=== PATIENT | female | born 1995 | race Caucasian/White ===

== ENCOUNTER 2016-05-20 19:02 | Emergency (ER) | payer OTHER, MEDICAID ==
[~2016-05-20] VITALS: Ht 157.5 cm; Wt 69.4 kg
[2016-05-20 19:56] LABS: Basophils # (auto) 0.1 uL; Basophils % (auto) 0.7 % (0.0-2.0); DEFINITIVE VIEW TRANSMISSION; Eosinophils # (auto) 0.1 uL; Eosinophils % (auto) 0.9 % (0.0-7.0); Hematocrit 44.2 % (36.0-46.0); Hemoglobin 14.3 g/dL (12.2-16.2); Lymphocytes # (auto) 3.5 uL; Lymphocytes % (auto) 42.5 % (10.0-50.0); Mean Corpuscular Hemoglobin 26.6 pg (28.0-32.0); Mean Corpuscular Hgb Conc. 32.3 g/dL (32.0-36.0); Mean Corpuscular Volume 82.4 fL (80.0-100.0); Monocytes # (auto) 0.6 uL; Monocytes % (auto) 6.9 % (0.0-12.0); Platelet Count (auto) 260 10^3/uL (140-450); White Blood Cell 8.3 10^3/uL (4.4-10.8)
[2016-05-20 19:59] LABS: Urine Bilirubin Negative (Negative); Urine Blood Negative /uL (Negative); Urine Color Yellow (Yellow); Urine Glucose Normal (Normal); Urine Ketone Negative (Negative); Urine Nitrite Negative (Negative); Urine RBC 1 /hpf (0 - 4); Urine Squamous Epithelial Cell FEW /hpf (<5); Urine Urobilinogen Normal (Negative)
[2016-05-20 20:22] LABS: Bilirubin, Total 0.2 mg/dL (0.2-1.0); Calcium 9.2 mg/dL (8.5-10.1); Total Protein 7.5 g/dL (6.4-8.2)
[2016-05-21 04:39] VITALS: BP 120/71
== END 2016-05-21 05:03 | disposition left against medical advice (07) ==
LOC: ER 19:12 → EDUNIT# 19:12 → ER 05-21 05:03
DX: R10.30 Lower abdominal pain, unspecified (principal); Z53.21 Procedure and treatment not carried out due to patient leaving prior to being seen by health care provider
CPT/HCPCS: 36415; 74176; 80053; 81001; 81025; 84702; 85025

== ENCOUNTER 2017-06-10 20:07 | Emergency (ER) | payer OTHER, MEDICAID ==
[~2017-06-10] VITALS: Ht 160 cm; Wt 89.4 kg
[2017-06-10] MEDS ORDERED: cefTRIAXone 1GM/10ml IVPUSH 10 ML IV ONE ×2 (20:44→20:45)
[2017-06-10 21:10] LABS: Eosinophils # (auto) 0 uL; Mean Corpuscular Volume 80.7 fL (80.0-100.0); Monocytes # (auto) 1.3 uL
[2017-06-10 21:15] LABS: Basophils # (auto) 0.2 uL; Basophils % (auto) 0.8 % (0.0-2.0); Hematocrit 39.7 % (36.0-46.0); Hemoglobin 12.9 g/dL (12.2-16.2); Lymphocytes # (auto) 1.8 uL; Lymphocytes % (auto) 7.1 % (10.0-50.0); Mean Corpuscular Hemoglobin 26.3 pg (28.0-32.0); Mean Corpuscular Hgb Conc. 32.5 g/dL (32.0-36.0); Neutrophils # (auto) 22.1 uL; Neutrophils % (auto) 87.1 % (37.0-80.0); Platelet Count (auto) 241 10^3/uL (140-450); Red Blood Cells 4.92 10^6/uL (4.0-5.20); Red Cell Distribution Width 14.9 % (11.8-14.3); White Blood Cell 25.4 10^3/uL (4.4-10.8)
[2017-06-10 21:25] LABS: Urine Bacteria FEW /hpf (None Seen); Urine Blood 1+ /uL (Negative); Urine Mucus FEW (None Seen); Urine Specific Gravity 1.027 (1.001-1.035); Urine WBC 3 /hpf (0 - 5)
[2017-06-10] MEDS ORDERED: SODIUM CHLORIDE 0.9% 1,000 ML IV ONE (22:45)
[2017-06-10 23:40] LABS: Albumin 3.3 g/dL (3.4-5.0); BUN/Creatinine Ratio 17.3; Bilirubin, Total 0.7 mg/dL (0.2-1.0); Calcium 8.4 mg/dL (8.5-10.1); Potassium 3.6 mmol/L (3.5-5.1); Total Protein 7.1 g/dL (6.4-8.2)
[2017-06-11 00:33] VITALS: BP 91/64
[2017-06-11] MEDS ORDERED: CLINDAMYCIN HCL 150 MG CAP PO ONE (01:00)
[2017-06-11] MEDS ORDERED: HYDROcodone-ACET 5/325MG TAB PO ONE (01:00)
== END 2017-06-11 02:21 | disposition home or self-care (01) ==
LOC: ER 20:07 → EDBD 20:07 → ER 06-11 02:12
DX: K05.219 Aggressive periodontitis, localized, unspecified severity (principal); R42 Dizziness and giddiness
CPT/HCPCS: 36415; 70450; 80053; 81001; 85025; 87040; 96361; 96374

== ENCOUNTER 2017-06-12 13:10 | Emergency (ER) | payer OTHER, MEDICAID | END 2017-06-12 13:50 | disposition left against medical advice (07) | LOC: ER 13:10 | DX: R21 Rash and other nonspecific skin eruption (principal); Z53.21 Procedure and treatment not carried out due to patient leaving prior to being seen by health care provider ==

== ENCOUNTER 2018-02-21 16:58 | Emergency (ER) | payer MEDICAID, OTHER ==
[~2018-02-21] VITALS: Ht 160 cm; Wt 93.9 kg
[2018-02-21 21:00] VITALS: BP 133/79
== END 2018-02-21 21:11 | disposition home or self-care (01) ==
LOC: ER 17:13
DX: S40.011A Contusion of right shoulder, initial encounter (principal); W22.8XXA Striking against or struck by other objects, initial encounter; Y93.89 Activity, other specified; Y92.89 Other specified places as the place of occurrence of the external cause; Y99.8 Other external cause status
CPT/HCPCS: 73030

== ENCOUNTER 2020-05-18 11:47 | Inpatient (IN) | payer OTHER ==
[~2020-05-18] VITALS: Ht 167.6 cm; Wt 106.5 kg
[2020-05-18 14:09] LABS: Basophils # (auto) 0.1 10 ^3/uL (0-0.2); Eosinophils # (auto) 0 10 ^3/uL (0-0.8); Eosinophils % (auto) 0.2 % (0.0-7.0); Monocytes # (auto) 1.3 10 ^3/uL (0-1.3)
[2020-05-18 14:11] LABS: Basophils % (auto) 0.7 % (0.0-2.0); Hematocrit 44.7 % (36.0-46.0); Hemoglobin 14.7 g/dL (12.2-16.2); Lymphocytes # (auto) 2.1 10 ^3/uL (0.4-5.4); Lymphocytes % (auto) 13.8 % (10.0-50.0); Mean Corpuscular Hemoglobin 25.7 pg (28.0-32.0); Mean Corpuscular Hgb Conc. 32.9 g/dL (32.0-36.0); Mean Corpuscular Volume 78.2 fL (80.0-100.0); Monocytes % (auto) 8.3 % (0.0-12.0); Neutrophils # (auto) 11.7 10 ^3/uL (1.6-8.6); Nucleated Red Blood Cells % 0.1 %; Platelet Count (auto) 375 10^3/uL (140-450); Red Blood Cells 5.72 10^6/uL (4.0-5.20); Red Cell Distribution Width 15.2 % (11.8-14.3); White Blood Cell 15.2 10^3/uL (4.4-10.8)
[2020-05-18 14:17] LABS: Albumin 3.6 g/dL (3.4-5.0); BUN/Creatinine Ratio 19.5; Calcium 8.7 mg/dL (8.5-10.1); Potassium 3.9 mmol/L (3.5-5.1)
[2020-05-18 14:20] LABS: Bilirubin, Total 0.2 mg/dL (0.2-1.0); Total Protein 7.8 g/dL (6.4-8.2)
[2020-05-18 14:29] LABS: INR 0.95 (0.9-1.15); Partial Thromboplastin Time 27.3 sec (23.0-31.2)
[2020-05-18] MEDS ORDERED: HYDROcodone-ACET 5/325MG TAB PO PRN (15:45)
[2020-05-18] MEDS ORDERED: NITROGLYCERIN 0.4 MG SL TAB SL PRN (15:45)
[2020-05-18] MEDS ORDERED: MORPHINE SULF INJ 2 MG/ML SYRINGE 1ML IV PRN (15:45)
[2020-05-18] MEDS: MORPHINE SULF INJ 2 MG/ML SYRINGE 1ML IV PRN ×2 (17:03→22:11)
[2020-05-19] MEDS: MORPHINE SULF INJ 2 MG/ML SYRINGE 1ML IV PRN ×5 (02:10→22:00)
[2020-05-19 07:55] LABS: Eosinophils # (auto) 0 10 ^3/uL (0-0.8); Hemoglobin 12.8 g/dL (12.2-16.2); Lymphocytes # (auto) 2.8 10 ^3/uL (0.4-5.4); Mean Corpuscular Hemoglobin 25.8 pg (28.0-32.0); Red Blood Cells 4.96 10^6/uL (4.0-5.20)
[2020-05-19 07:56] LABS: Basophils # (auto) 0 10 ^3/uL (0-0.2); Basophils % (auto) 0.4 % (0.0-2.0); Eosinophils % (auto) 0.3 % (0.0-7.0); Lymphocytes % (auto) 24.9 % (10.0-50.0); Mean Corpuscular Hgb Conc. 32.8 g/dL (32.0-36.0); Mean Corpuscular Volume 78.5 fL (80.0-100.0); Monocytes % (auto) 9.1 % (0.0-12.0); Neutrophils # (auto) 7.3 10 ^3/uL (1.6-8.6); Neutrophils % (auto) 65.3 % (37.0-80.0); Platelet Count (auto) 339 10^3/uL (140-450); Red Cell Distribution Width 15.2 % (11.8-14.3); White Blood Cell 11.2 10^3/uL (4.4-10.8)
[2020-05-19 08:09] LABS: Albumin 3.4 g/dL (3.4-5.0); Calcium 8.7 mg/dL (8.5-10.1); Potassium 3.8 mmol/L (3.5-5.1)
[2020-05-19 08:15] LABS: Bilirubin, Total 0.5 mg/dL (0.2-1.0); Total Protein 7.3 g/dL (6.4-8.2)
[2020-05-19] MEDS: HYDROcodone-ACET 5/325MG TAB PO PRN ×2 (10:11→11:18)
[2020-05-19] MEDS: PANTOPRAZOLE 40 MG TAB PO SCH (10:17)
[2020-05-19 19:10] LABS: Urine Bacteria FEW /hpf (None Seen); Urine Blood 1+ /uL (Negative); Urine Mucus FEW (None Seen); Urine WBC 1 /hpf (0 - 5)
[2020-05-19 21:12] VITALS: BP 123/84
[2020-05-20] MEDS: HYDROcodone-ACET 5/325MG TAB PO PRN ×3 (00:50→21:47)
[2020-05-20] MEDS: MORPHINE SULF INJ 2 MG/ML SYRINGE 1ML IV PRN (04:30)
[2020-05-20 05:00] VITALS: BP 122/80
[2020-05-20 08:00] VITALS: BP_SYST 122; BP_SYST 125; BP_DIAS 79; BP_DIAS 80
[2020-05-20] MEDS ORDERED: MORPHINE SULF(PF) 0.5MG/ML 10ML VIAL ONE (09:47)
[2020-05-20] MEDS ORDERED: fentaNYL CITRATE 100 MCG/2 ML VL ONE (09:47)
[2020-05-20] MEDS ORDERED: MIDAZOLAM HCL 1MG/1ML-2 ML VIAL ONE ×2 (09:47→12:17)
[2020-05-20] MEDS ORDERED: PROPOFOL 10 MG/ML 20 ML IV ONE (09:47)
[2020-05-20] MEDS ORDERED: ONDANSETRON HCL 4 MG/2 ML VIAL ONE (09:47)
[2020-05-20] MEDS ORDERED: EPINEPHrine HCL 1 MG/1 ML AMP ONE (09:47)
[2020-05-20] MEDS ORDERED: SODIUM CHLORIDE LOCK 10 ML ONE (09:47)
[2020-05-20] MEDS: PANTOPRAZOLE 40 MG TAB PO SCH (10:00)
[2020-05-20] MEDS ORDERED: ROPIVACAINE 0.5% (5MG/ML) 20ML AMPULE IJ ONE (10:08)
[2020-05-20] MEDS ORDERED: ceFAZolin 1GM/50ML 50 ML IV ONE (10:34)
[2020-05-20] MEDS ORDERED: TETRACAINE 1% INJ 2 ML VIAL IJ ONE (10:49)
[2020-05-20] MEDS ORDERED: MORPHINE SULFATE 4 MG/ML SYR/VIAL IV PRN (14:30)
[2020-05-20] MEDS ORDERED: HYDROmorphone HCL 2 MG/ML VL IV PRN (14:30)
[2020-05-20] MEDS ORDERED: METOCLOPRAMIDE HCL 5MG/ml INJ 2ml VIAL IV PRN (14:30)
[2020-05-20 16:00] VITALS: BP 117/76
[2020-05-20] MEDS: ONDANSETRON HCL 4 MG/2 ML VIAL IV PRN (16:54)
[2020-05-20 20:00] VITALS: BP 114/60
[2020-05-20 22:00] VITALS: BP 114/68
[2020-05-21] MEDS: MORPHINE SULF INJ 2 MG/ML SYRINGE 1ML IV PRN ×4 (00:16→18:26)
[2020-05-21] MEDS: HYDROcodone-ACET 5/325MG TAB PO PRN ×4 (01:52→20:46)
[2020-05-21 05:00] VITALS: BP 118/91
[2020-05-21 08:00] VITALS: BP 127/83
[2020-05-21] MEDS: PANTOPRAZOLE 40 MG TAB PO SCH (10:49)
[2020-05-21] MEDS: ONDANSETRON HCL 4 MG/2 ML VIAL IV PRN ×2 (10:50→18:26)
[2020-05-21 16:00] VITALS: BP 127/79
[2020-05-21 21:35] VITALS: BP 116/96
[2020-05-21] MEDS ORDERED: ACETAMINOPHEN 325 MG TAB PO PRN (22:45)
[2020-05-22] MEDS: ONDANSETRON HCL 4 MG/2 ML VIAL IV PRN ×2 (01:07→08:22)
[2020-05-22] MEDS: MORPHINE SULF INJ 2 MG/ML SYRINGE 1ML IV PRN (01:08)
[2020-05-22] MEDS: HYDROcodone-ACET 5/325MG TAB PO PRN ×2 (04:13→11:07)
[2020-05-22 05:00] VITALS: BP 136/91
[2020-05-22 08:00] VITALS: BP 128/60
[2020-05-22] MEDS: PANTOPRAZOLE 40 MG TAB PO SCH (08:24)
[2020-05-22] MEDS ORDERED: DOCUSATE SOD 100 MG CAP PO SCH (10:00)
== END 2020-05-22 15:00 | disposition home or self-care (01) | DRG 493 ==
LOC: EDBD 11:47 → ER 11:47 → OVERFLOW 11:48 → CENTRAL 05-19 21:12
PROVIDERS: ADMIT Nurse Practitioner Acute Care; ATTEND Family Medicine
PROC: 2W3SX1Z Immobilization of Right Foot using Splint (ICD-10-PCS; 2020-05-20)
PROC: 0QSJ04Z Reposition Right Fibula with Internal Fixation Device, Open Approach (ICD-10-PCS; principal; 2020-05-20 11:55)
DX: S82.851A Displaced trimalleolar fracture of right lower leg, initial encounter for closed fracture (principal); R65.10 Systemic inflammatory response syndrome (SIRS) of non-infectious origin without acute organ dysfunction; E66.9 Obesity, unspecified; Z20.822 Contact with and (suspected) exposure to COVID-19; W18.39XA Other fall on same level, initial encounter; Y93.89 Activity, other specified; Z68.33 Body mass index [BMI] 33.0-33.9, adult; Y92.89 Other specified places as the place of occurrence of the external cause; Y99.8 Other external cause status
CPT/HCPCS: 36415; 71045; 73600; 73610; 80053; 81001; 84702; 85025; 85610; 85730; 86850; 86900; 86901; 87426; 93005; G0378; J0171; J0690; J2250; J2405; J2704

== ENCOUNTER → 2023-07-11 | Outpatient (CLI) | payer BC ==
[2023-07-11 09:25] LABS: Basophils # (auto) 0.1 10 ^3/uL (0-0.2); Hemoglobin 14.5 g/dL (12.2-16.2); Monocytes # (auto) 0.4 10 ^3/uL (0-1.3); Monocytes % (auto) 4.7 % (0.0-12.0); Nucleated Red Blood Cells % 0.1 %
[2023-07-11 09:26] LABS: Basophils % (auto) 0.7 % (0.0-2.0); Eosinophils # (auto) 0.1 10 ^3/uL (0-0.8); Eosinophils % (auto) 1.5 % (0.0-7.0); Hematocrit 44.2 % (36.0-46.0); Lymphocytes # (auto) 2.4 10 ^3/uL (0.4-5.4); Lymphocytes % (auto) 27.9 % (10.0-50.0); Mean Corpuscular Hemoglobin 25.7 pg (28.0-32.0); Mean Corpuscular Hgb Conc. 32.7 g/dL (32.0-36.0); Mean Corpuscular Volume 78.6 fL (80.0-100.0); Neutrophils # (auto) 5.6 10 ^3/uL (1.6-8.6); Neutrophils % (auto) 65.2 % (37.0-80.0); Red Blood Cells 5.62 10^6/uL (4.0-5.20); Red Cell Distribution Width 15.4 % (11.8-14.3); White Blood Cell 8.5 10^3/uL (4.4-10.8)
[2023-07-11 09:46] LABS: Anion Gap 6 (5-15); Carbon Dioxide 28 mmol/L (20-30); Chloride 108 mmol/L (98-107); Potassium 4.1 mmol/L (3.5-5.1); Sodium 142 mmol/L (136-145)
[2023-07-11 09:47] LABS: Calcium 9.4 mg/dL (8.5-10.1)
[2023-07-11 09:52] LABS: Glucose 91 mg/dL (74-106)
[2023-07-11 09:53] LABS: BUN/Creatinine Ratio 11.9 (10.0-20.0); Blood Urea Nitrogen 10 mg/dL (9-23); LDL Cholesterol 100 mg/dL (< 100); Triglycerides 142 mg/dL (< 150)
[2023-07-11 09:54] LABS: Cholesterol 158 mg/dL (< 200)
[2023-07-11 09:55] LABS: HDL Cholesterol 42 mg/dL (40-59)
== END | disposition home or self-care (01) ==
LOC: LAB 08:57
PROVIDERS: ATTEND Student in an Organized Health Care Education/Training Program
DX: Z00.00 Encounter for general adult medical examination without abnormal findings (principal); E66.9 Obesity, unspecified; N92.6 Irregular menstruation, unspecified
CPT/HCPCS: 36415; 80048; 80061; 84439; 84443; 85025

== ENCOUNTER 2024-12-18 12:27 | Outpatient (CLI) | payer BC ==
[2024-12-18 13:19] LABS: Hematocrit 40.8 % (36.0-46.0); Hemoglobin 13.6 g/dL (12.2-16.2); Nucleated Red Blood Cells % 0.1 %
[2024-12-18 13:21] LABS: Mean Corpuscular Hemoglobin 26.5 pg (28.0-32.0); Mean Corpuscular Volume 79.5 fL (80.0-100.0)
[2024-12-18 13:31] LABS: Alanine Aminotransferase 39 U/L (7-40); Albumin 4.4 g/dL (3.2-4.8); Alkaline Phosphatase 98 U/L (46-116); Anion Gap 8 (5-15); BUN/Creatinine Ratio 13.9 (10.0-20.0); Bilirubin, Total 0.4 mg/dL (0.2-1.0); Blood Urea Nitrogen 11 mg/dL (9-23); Calcium 8.8 mg/dL (8.7-10.4); Carbon Dioxide 25 mmol/L (20-31); Cholesterol 198 mg/dL (< 200); Glucose 89 mg/dL (74-106); HDL Cholesterol 50 mg/dL (40-59); Potassium 4.0 mmol/L (3.5-5.1); Sodium 141 mmol/L (136-145); Total Protein 6.6 g/dL (5.7-8.2); Triglycerides 114 mg/dL (< 150)
[2024-12-18 13:37] LABS: Chloride 108 mmol/L (98-107)
== END 2024-12-18 17:00 | disposition home or self-care (01) ==
LOC: LAB 12:27
PROVIDERS: ATTEND Nurse Practitioner Family
DX: I10 Essential (primary) hypertension (principal); E66.9 Obesity, unspecified; Z00.01 Encounter for general adult medical examination with abnormal findings
CPT/HCPCS: 36415; 80053; 80061; 82306; 84443; 85025

== ENCOUNTER → 2025-02-06 | Outpatient (CLI) | payer BC ==
[2025-02-06 08:30] VITALS: BP 137/68; PULSE 86; RESP 16
--- NOTE | 2025-02-06 08:56 | DVHCARD ---
Cardiology Stress Test [place] Treadmill Stress Test [place] Referring MD: MD Wojciech Protocol: Aric (without cardiolite) Reason for referral: Other (tachycardia) Target heart Rate:@85%: 162 Percent MPHR: 191 METS: 9.5 Resting Heart rate: 86 Resting Blood Pressure: 137/68 Exercise Heart Rate: 193 Exercise Blood Pressure: 167/50 Reason for Termination of Test: Shortness of breath Baseline EKG: Normal sinus rhythm Stress EKG: Supraventricular tachycardia with artifact Functional Capacity: Mildly Decreased Heart Rate Response: Adequate Blood Pressure Response: Hypertensive Clinical response: Non-ischemic Arrhythmia?: No (Artifact in 3rd stage of test) Cardiolite Injected?: No ST-T Changes: Non/Minimal Probability of Inducible Ische: Low Date of Service: Feb 06, 2025 Billing Provider: RAFFI ADAMS Cardiology Common Codes: PROCEDURE ONLY Treadmill w/o Cardiolite: [id number], INTERP, RPT RAFFI ADAMS Feb 06, 2025 08:56
== END | disposition home or self-care (01) ==
LOC: XYW 07:49
PROVIDERS: ATTEND Internal Medicine
DX: I47.9 Paroxysmal tachycardia, unspecified (principal); R06.02 Shortness of breath
CPT/HCPCS: 93017